=== PATIENT | male | born 1990 | race Caucasian/White ===

== ENCOUNTER → 2020-04-07 10:13 | Outpatient (CLI) | payer OTHER, SELFPAY ==
[2020-04-07 11:30] LABS: COVID19 -Nasal RAPID Negative (Negative)
== END ==
PROVIDERS: Visit Provider Surgery
DX: Z01.812 Encounter for preprocedural laboratory examination (principal); Z20.828 Contact with and (suspected) exposure to other viral communicable diseases
CPT/HCPCS: 87635; 99211

== ENCOUNTER 2020-04-08 11:58 | Day surgery (SDC) | payer OTHER, SELFPAY ==
[2020-04-07 10:50] VITALS: BMI 24.9
[2020-04-08] VITALS (8 sets, daily range): BP systolic 85–141; BP diastolic 41–81; PULSE 57–82; RESP 11–16; TEMP 36.3–37.2; O2SAT 93–100; BMI 24.9
[2020-04-08] MEDS: LACTATED RINGERS 1,000 ML 100 ML IV ×2 (12:36→16:04)
[2020-04-08] MEDS: CEFAZOLIN 2 GM/100 ML FROZ.PIGGY IV (14:39)
[2020-04-08] MEDS: BUPIVACAINE 0.25% (PF) VIAL 30 ML INJ (14:57)
--- NOTE | 2020-04-08 14:59 | SUR.OPER ---
Supine on padded OR bed, head on pillow, arms secured on padded arm boards at <90 degrees abduction, legs uncrossed, safety belt at thigh.
--- NOTE | 2020-04-08 16:08 | PM.OP.1 ---
Operative Date/Time/Diagnoses Date of procedure: 04/08/20 Time of procedure: 16:08 Pre-op diagnosis: Non incarcerated right inguinal hernia Post-op diagnosis: same Procedure & Clinicians Procedure: Open right inguinal hernia repair with mesh Same procedure as scheduled: Yes Indications: 29-year-old male with a symptomatic reducible right inguinal hernia here for elective repair Surgeon: Benedicto Kulkarni Anesthesia Type: General Operative Notes Findings: Direct and indirect right hernia defects Specimen(s): none sent Estimated Blood Loss (mL): 20 Procedure in detail: The patient was placed supine on the table and bilateral lower extremity compression devices were applied. Anesthesia was induced they were intubated with an LMA and received 2g of Ancef. A time-out was performed. They were prepped and draped in sterile fashion. The right external inguinal ring and the anterior superior iliac crest were identified and marked. 1 finger breath above the inguinal ligament the skin was infiltrated with 0.25% bupivacaine. The skin incision was made here and the subcutaneous tissues were divided with electrocautery exposing the external oblique aponeurosis which was then opened along the direction of its fibers. Using blunt dissection the internal oblique aporneurosis was from the external oblique upper leaflet to identify the iliohypogastric nerve. Using a kittner the cord was carefully dissected away from the inguinal canal adjacent to the pubic tubercle. The cord including the vas deferens, testicular bloody supply, ilioguinal and genital nerve were encircled with a [place] drain. A direct floor defect was identified and it was reduced into the abdomen and the internal oblique aporneuorsis was approximated to the inguinal ligament with Ethibond suture to reapproximate the floor. The cremasteric fibers surrounding the cord were divided using electrocautery adjacent to the internal ring.. The vas deferens and the testicular vessels were preserved and protected. There was a small indirect hernia on the anterior medial aspect of the cord which was skeletonized away from the vas deferens and testicular blood supply. The indirect hernia was skeletonized back to the internal ring and reduced spontaneously into the abdomen. I selected a 7x 15 cm lightweight Pro Loop hernia mesh. The inferior medial aspect of the mesh was anchored to insertion of the rectus muscle to the pubic tubercle such that there was approximately 2 cm of tubercle overlap with Ethibond and then was run continuously along the inferior edge of the mesh to the shelving edge of the inguinal ligament. Interrupted 3 0 Vicryl suture was used to anchor the superior aspect of the mesh to the conjoined tendon in several places. The tails were then reapproximated loosely around the spermatic cord. The tails of the mesh were then tucked under the external oblique aponeurosis. The repair was checked for hemostasis. The wound was irrigated with sterile saline. The external oblique aponeurosis was reapproximated in a running fashion using 3 0 Vicryl. The subcutaneous tissues were reapproximated with 3 0 Vicryl skin closed with 4 0 Monocryl followed by the application of Dermabond. At the end of the operation I ensured that both testicles were within the scrotum. The sponge instrument count at the end operation was correct. The patient emerged from anesthesia was extubated and transferred to the postoperative care unit in stable condition. A total of 30 ml of of 0.25% bupivicaine was used to infiltrate the skin. Complications: none Post-operative Condition: stable Disposition: same day surgery
[2020-04-08] MEDS: KETOROLAC 30 MG/ML VIAL IV (16:17)
[2020-04-08] MEDS: ONDANSETRON 4 MG/2 ML INJ IV (16:29)
[2020-04-08] MEDS: OXYCODONE/ACETAMINOPHEN 5/325 TABLET 1 TAB PO (16:40)
== END 2020-04-08 17:25 | disposition home or self-care (01) ==
PROVIDERS: Referring Provider Surgery; Visit Provider Surgery
PROC: (CPT 49505; principal; 2020-04-08 13:15)
DX: K40.90 Unilateral inguinal hernia, without obstruction or gangrene, not specified as recurrent (principal); J45.20 Mild intermittent asthma, uncomplicated
CPT/HCPCS: 49505; 82962; C1781; J0690; J1100; J1885; J2250; J2405; J2704; J3010

== ENCOUNTER 2022-04-30 22:03 | Emergency (ER) | payer OTHER, SELFPAY ==
[2022-04-30 22:16] VITALS: BP 135/93; PULSE 74; RESP 20; TEMP 36.9; O2SAT 98; BMI 27.3
--- NOTE | 2022-04-30 22:29 | ED.GENADULT ---
HPI - General Adult General Chief complaint: Ear Stated complaint: Ear issues, Swollen lymph node Time Seen by Provider: 04/30/22 22:09 Source: patient Mode of arrival: Ambulatory Limitations: no limitations History of Present Illness HPI narrative: 31-year-old male who is here for evaluation of a rash in the front of his left ear and then some enlarged lymph nodes front of his left ear as well. It has been worsening over the past day or so. No problems with hearing in that ear. Has not tried anything for the symptoms. Related Data Home Medications Medication Instructions Recorded Confirmed alprazolam 0.5 mg tablet (Xanax) 0.5 mg PO BEDTIME PRN Anxiety 03/26/20 05/07/20 multivitamin 1 tab PO DAILY 03/26/20 05/07/20 Previous Rx's Medication Instructions Recorded acetaminophen 325 mg capsule 650 mg PO QID PRN pain #60 caps 04/08/20 (Tylenol) docusate sodium 100 mg capsule 100 mg PO BID #30 caps 04/08/20 (Colace) oxycodone 5 mg tablet 5 mg PO Q6H PRN pain #30 tabs 04/08/20 cephalexin 500 mg capsule 500 mg PO QID 7 days #28 caps 04/30/22 Allergies Allergy/AdvReac Type Severity Reaction Status Date / Time Corticosteroids AdvReac Mild Verified 05/07/20 14:09 (Glucocorticoids) Review of Systems Constitutional Constitutional: Reports system reviewed and no additional complaints, except as documented Eyes Eyes: Reports system reviewed and no additional complaints, except as documented ENT Ears, Nose, Mouth, and Throat: Reports system reviewed and no additional complaints, except as documented Integumentary/Breasts Skin/Breast: Reports system reviewed and no additional complaints, except as documented Patient History Medical History Asthma Family History (Updated 03/26/20 @ 13:33 by Ariane Long RN) Father Heart disease Grandfather Heart disease Cancer Social History household members: spouse Smoking Status: Never smoker alcohol intake: never Smoking Status: Never smoker Substance Use Type: does not use Exam Initial Vital Signs Initial Vital Signs: Vital Signs Temperature 98.4 F 04/30/22 22:16 Pulse Rate 74 04/30/22 22:16 Respiratory Rate 20 04/30/22 22:16 Blood Pressure 135/93 H 04/30/22 22:16 Pulse Oximetry 98 04/30/22 22:16 Oxygen Delivery Method 04/30/22 22:16 Const General: cooperative and healthy appearing HENMT Ears: TM's normal bilaterally, EAC's normal, mastoids normal and periauricular adenopathy on the left Skin Other: Small area of redness in the front of his left ear without vesicles/ulcerations. Neuro General: patient alert and patient awake Course Vital Signs Vital signs: Vital Signs - 8 hr 04/30/22 22:16 Temperature 98.4 F Pulse Rate 74 Respiratory Rate 20 Blood Pressure 135/93 H Pulse Oximetry 98 Oxygen Delivery Method Room Air Medical Decision Making MDM Narrative Medical decision making narrative: He does have left-sided preauricular lymphadenopathy. Does have a small amount of redness at the top portion of this. It is not consistent with zoster. Not consistent with cellulitis. No trauma. Plan will be is for him to use a topical antibiotic ointment. I did give him a prescription for antibiotics and he will start using this if his symptoms do not improve with the topical medications. No indication for any radiologic studies. He was given return precautions. He expressed understanding and agreement. Discharge Plan Departure Patient Disposition: Home Clinical Impression: Lymphadenopathy Instructions: DI for Lymphadenopathy Activity Restrictions/Additional Instructions: I do recommend that you put a topical antibiotic ointment such as bacitracin or Neosporin over the area that we discussed in front of your left ear. If your symptoms worsen despite this then start taking the antibiotic that you were given a prescription for by mouth and as directed. If you start to develop a rash that looks more like blisters please return to the emergency department for evaluation. Prescriptions: New cephalexin 500 mg capsule 500 mg PO QID 7 Days Qty: 28 0RF No Action alprazolam [Xanax] 0.5 mg tablet 0.5 mg PO BEDTIME PRN (Reason: Anxiety) multivitamin Tablet 1 tab PO DAILY docusate sodium [Colace] 100 mg capsule 100 mg PO BID Qty: 30 0RF oxycodone 5 mg tablet 5 mg PO Q6H PRN (Reason: pain) Qty: 30 0RF acetaminophen [Tylenol] 325 mg capsule 650 mg PO QID PRN (Reason: pain) Qty: 60 0RF Referrals: Provider,Beatriz TAYLOR [Primary Care Provider] -
== END 2022-04-30 22:42 | disposition home or self-care (01) ==
PROVIDERS: Emergency Provider Emergency Medicine
DX: R59.1 Generalized enlarged lymph nodes (principal)
CPT/HCPCS: 99281

== ENCOUNTER 2023-06-13 21:12 | Emergency (ER) | payer OTHER, SELFPAY ==
[2023-06-13 21:21] VITALS: BP 140/79; PULSE 92; RESP 16; TEMP 36.8; O2SAT 97; BMI 27.3
--- NOTE | 2023-06-14 00:19 | ED_ITS ---
HPI - Back Pain/Injury General Chief Complaint: Back Pain/Injury Stated Complaint: low back pain/rt side Time Seen by Provider: 06/13/23 23:55 Source: patient History of Present Illness HPI Narrative: 33-year-old male presents for gradually worsening right-sided lumbar back pain. Patient states that he had an MRI in 2019 that showed 2 herniated discs, and has been going to physical therapy, however he has not noticed much improvement. He states he intermittently will tweak his back, but he can usually identify the inciting event. He states that yesterday while he was brushing his teeth his right back seized up and he has been in significant pain since then. He has been taking [id number] medications and muscle relaxers with some relief of his pain, however he is concerned that he may have Re herniated discs or have some sort of nerve injury. Denies bowel or bladder incontinence, denies saddle anesthesia. He does endorse difficulty walking due to pain. Related Data Home Medications Medication Instructions Recorded Confirmed alprazolam 0.5 mg tablet (Xanax) 0.5 mg PO BEDTIME PRN Anxiety 03/26/20 05/07/20 multivitamin 1 tab PO DAILY 03/26/20 05/07/20 Previous Rx's Medication Instructions Recorded acetaminophen 325 mg capsule 650 mg (2 x 325 mg) PO QID PRN 04/08/20 (Tylenol) pain #60 caps docusate sodium 100 mg capsule 100 mg PO BID #30 caps 04/08/20 (Colace) oxycodone 5 mg tablet 5 mg PO Q6H PRN pain #30 tabs 04/08/20 methocarbamol 500 mg tablet 500 mg PO TID #30 tabs 06/14/23 Allergies Allergy/AdvReac Type Severity Reaction Status Date / Time Corticosteroids AdvReac Mild Hiccups Verified 06/13/23 21:21 (Glucocorticoids) Review of Systems Review of Systems Narrative: Negative except as noted above Patient History Medical History Asthma Family History (Updated 03/26/20 @ 13:33 by Ariane Long RN) Father Heart disease Grandfather Heart disease Cancer Social History household members: spouse Smoking Status: Never smoker alcohol intake: never Smoking Status: Never smoker Substance Use Type: does not use Exam Initial Vital Signs Initial Vital Signs: Vital Signs Temperature 98.2 F 06/13/23 21:21 Pulse Rate 92 H 06/13/23 21:21 Respiratory Rate 16 06/13/23 21:21 Blood Pressure 140/79 06/13/23 21:21 Pulse Oximetry 97 06/13/23 21:21 Oxygen Delivery Method Room Air 06/13/23 21:21 Const: Awake, alert, no acute distress, nontoxic appearing Cardiac: regular rate, regular rhythm RESP: unlabored, clear bilaterally, no wheezing GI: Atraumatic, soft, nontender, nondistended, no rebound, no guarding MSK back: no midline tenderness, no deformities, R paraspinal/sacral pain Skin: Warm, Dry, intact, no rashes Neuro: AO x3, CN II-XII grossly intact, moves all extremities Psych: affect normal, mood normal, not suicidal, not homicidal Course Orders Ordered: Discontinued Medications Dexamethasone (Dexamethasone 10 Mg/Ml Vial) 10 mg IV NOW ONE Stop: 06/14/23 00:20 Last Admin: 06/14/23 00:49 Dose: Not Given Documented By: MAGGIE Acetaminophen (Ofirmev) 1,000 mg in 100 mls @ 400 mls/hr IV NOW ONE Stop: 06/14/23 00:33 Last Infusion: 06/14/23 01:32 Dose: Infused Documented By: Admin: 06/14/23 00:42 Dose: 400 mls/hr Documented By: MAGGIE Ketorolac Tromethamine (Ketorolac 30 Mg/Ml Vial) 15 mg IV NOW ONE Stop: 06/14/23 00:20 Last Admin: 06/14/23 00:42 Dose: 15 mg Documented By: MAGGIE Lidocaine (Lidocaine 5% Patch) 1 each TOP NOW ONE Stop: 06/14/23 00:20 Last Admin: 06/14/23 00:42 Dose: 1 each Documented By: MAGGIE Methocarbamol (Methocarbamol 500 Mg Tablet) 750 mg PO NOW ONE Stop: 06/14/23 00:20 Last Admin: 06/14/23 00:49 Dose: Not Given Documented By: MAGGIE Vital Signs Vital signs: Vital Signs - 8 hr 06/13/23 21:21 Temperature 98.2 F Pulse Rate 92 H Respiratory Rate 16 Blood Pressure 140/79 Pulse Oximetry 97 Oxygen Delivery Method Room Air MDM - Back Pain/Injury Lab Data Labs: Urine Dip Bedside Urine Glucose Negative Bedside Urine Bilirubin - Negative Bedside Urine Ketone - Negative Urine Specific Jackson 1.020 Bedside Urine Occult Blood - Negative Bedside Urine pH 6.0 Bedside Urine Protein - Negative Bedside Urine Urobilinogen - Negative Bedside Urine Nitrite - Negative Bedside Urine Leukocytes - Negative Esterase MDM Narrative Medical decision making narrative: Well-appearing patient with worsening back pain without trauma. Patient is able to ambulate, however he does appear to have a hitch in his step due to to pain. Since patient states that he has had persistent pain despite physical therapy and has had no recent imaging we will order CT scan. Nonnarcotic medications ordered for pain. Patient is sitting upright in ED recliner. No acute distress. CT imaging shows mild degenerative changes but no other acute findings. Patient was counseled on the results of imaging. Recommended close follow up with primary care physician and encouraged additional physical therapy. Patient states that he has an gerry ointment with physical therapy in the next several weeks and we will continue to work with them. States he is never seen a spine doctor, a referral was provided in his paperwork. ED return precautions discussed at bedside. Patient expressed understanding of the plan and is in agreement at this time. All questions answered at the time of discharge. Discharge Plan Departure Patient Disposition: Home Clinical Impression: Acute lumbar back pain Instructions: DI for Low Back Pain Prescriptions: New methocarbamol 500 mg tablet 500 mg PO TID Qty: 30 0RF No Action alprazolam [Xanax] 0.5 mg tablet 0.5 mg PO BEDTIME PRN (Reason: Anxiety) multivitamin Tablet 1 tab PO DAILY docusate sodium [Colace] 100 mg capsule 100 mg PO BID Qty: 30 0RF oxycodone 5 mg tablet 5 mg PO Q6H PRN (Reason: pain) Qty: 30 0RF acetaminophen [Tylenol] 325 mg capsule 650 mg PO QID PRN (Reason: pain) Qty: 60 0RF Referrals: Malachi Khalil MD [Physician] - Provider,Beatriz TAYLOR [Primary Care Provider] - Stand Alone Forms: Patient Portal/API
--- NOTE | 2023-06-14 00:19 | DI.CT.S_ITS ---
PROCEDURE: CT LUMBAR SPINE WO CON INDICATIONS: LUMBAR BACK PAIN TECHNIQUE: Noncontrast 3 mm thick sections acquired from the T12 level to the sacrum. Sagittal and coronal reformats were constructed. For radiation dose reduction, the following was used: automated exposure control. COMPARISON: None. FINDINGS: Image quality: Diagnostic Bones: There is normal bony alignment. No acute vertebral body compression fractures. No suspicious lytic or blastic bony lesions. No pars defects. Soft tissues: No retroperitoneal masses or hematomas. Visualized aorta is normal in caliber. IMPRESSION: No acute fracture or traumatic subluxation. No significant degeneration. Approved by: Sharona Melendez M.D. on 06/14/2023 at 2:53
[2023-06-14] MEDS: ACETAMINOPHEN IV 1,000 MG/100 ML VIAL 400 MG IV (00:42)
[2023-06-14] MEDS: LIDOCAINE 5% PATCH 1 EACH TOP (00:42)
[2023-06-14] MEDS: KETOROLAC 30 MG/ML VIAL 15 MG IV (00:42)
[2023-06-14 03:09] VITALS: BP 124/74; PULSE 58; RESP 20; O2SAT 98
== END 2023-06-14 03:11 | disposition home or self-care (01) ==
PROVIDERS: Emergency Provider Emergency Medicine
DX: M54.50 Low back pain, unspecified (principal)
CPT/HCPCS: 72131; 81003; 96365; 96375; 99283; J0136; J1885